=== PATIENT | female | born 1980 | race Caucasian/White ===

== ENCOUNTER 2016-10-06 09:29 | Emergency (ER) | payer BC ==
[2016-10-06 09:37] VITALS: BP 138/93
[2016-10-06 10:19] LABS: CHLORIDE,CL 105 mEq/L (98-106); SODIUM,NA 140 mEq/L (136-145)
--- NOTE | 2016-10-06 10:39 | EDM.PDOC ---
[id number] LIGHT HEADED Time Seen by Provider: 10/06/16 09:46 Source of Information: Reports: Patient History Limitations: Reports: No Limitations - History of Present Illness INITIAL COMMENTS - FREE TEXT/NARRATIVE: Patient presents to ED with a near syncopal episode while eating brunch out at the [facility]. Patient states she had sat down to eat and started feeling warm, lightheaded and felt she was going to faint. She noted her heart was racing and felt short of breath. Does admit that she got scared when this occurred. Patient relates she was up at 6 am today and had a bowl of fruit loops and a Coke prior to this. Had also eaten about half her hash browns when this happened. This has happened one other time and she worries she may be allergic to something as it felt hard to swallow for a bit. At present, feels much improved. Patient denies hives, wheezing or rash. Not aware of any previous allergies. Onset: Sudden Duration: Minutes:, Improving Location: Reports: Generalized Improves with: Reports: Rest Associated Symptoms: Reports: Nausea/Vomiting, Shortness of Breath, Syncope, Weakness. 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 Denies: Fever, Chills, Malaise, Decreased Appetite HEENT: Reports: Vertigo. Denies: Ear Discharge, Ear Pain, Sinus Problem, Throat Pain, Vision Change Respiratory: Reports: Shortness of Breath. Denies: Cough Cardiovascular: Reports: Lightheadedness, Palpitations. Denies: Chest Pain, Edema Endocrine: Reports: Fatigue GI/Abdominal: Reports: Nausea. Denies: Abdominal Pain, Constipation, Diarrhea, Vomiting : Reports: No Symptoms Musculoskeletal: Reports: No Symptoms Skin: Reports: No Symptoms Neurological: Reports: Dizziness, Syncope, Weakness Psychiatric: Reports: No Symptoms Hematologic/Lymphatic: Reports: No Symptoms ED EXAM, GENERAL - Physical Exam Exam: See Below Exam Limited By: No Limitations General Appearance: Alert, WD/WN, No Apparent Distress Eye Exam: Bilateral Eye: EOMI Ears: Normal External Exam, Normal TMs Nose: Normal Inspection, Normal Mucosa, No Blood Throat/Mouth: Normal Inspection, Normal Oropharynx Head: Normocephalic Neck: Normal Inspection, Supple, Non-Tender Respiratory/Chest: No Respiratory Distress, Lungs Clear, Normal Breath Sounds Cardiovascular: Normal Peripheral Pulses, Regular Rate, Rhythm GI/Abdominal: Normal Bowel Sounds, Soft, Non-Tender Extremities: Normal Inspection, Normal Range of Motion, Non-Tender Neurological: Alert, Oriented, CN II-XII Intact, No Motor/Sensory Deficits Psychiatric: Normal Affect, Normal Mood Skin Exam: Warm, Dry Course - Vital Signs Last Recorded V/S: Last Vital Signs Temp 96.1 F 10/06/16 09:36 Pulse 92 10/06/16 09:36 Resp 18 10/06/16 09:36 BP 138/93 H 10/06/16 09:36 Pulse Ox 100 10/06/16 09:36 - Orders/Labs/Meds Labs: Laboratory Tests 10/06/16 10/06/16 10/06/16 Range/Units 09:41 09:41 09:41 WBC 9.1 (5.0-10.0) 10^3/uL RBC 4.15 (4.00-5.50) 10^6/uL Hgb 12.9 (12.0-16.0) g/dL Hct 39.2 (37.0-47.0) % MCV 94.5 H (82.0-94.0) fL MCH 31.1 (27.0-32.0) pg MCHC 32.9 L (33.0-38.0) g/dL RDW Coeff of Christie 12.9 (11.0-15.0) % Plt Count 271 (150-400) 10^3/uL Neut % (Auto) 57.6 (35-85) % Lymph % (Auto) 30.4 (10-55) % [place] % (Auto) 9.3 (0-16) % Eos % (Auto) 2.3 (0-5) % Baso % (Auto) 0.4 (0-3) % Neut # (Auto) 5.22 (1.80-7.00) 10^3/uL Lymph # (Auto) 2.75 (1.00-4.80) 10^3/uL [place]kins # (Auto) 0.84 H (0.00-0.80) 10^3/uL Eos # (Auto) 0.21 (0.00-0.45) 10^3/uL Baso # (Auto) 0.04 10^3/uL D-Dimer, Quantitative 0.28 (0.00-0.50) Sodium 140 (136-145) mEq/L Potassium 3.9 (3.5-5.0) mEq/L Chloride 105 (98-106) mEq/L Carbon Dioxide 28 (21-32) mmol/L BUN 6 L (7-18) mg/dL Creatinine 0.5 L (0.6-1.0) mg/dL Est Cr Clr Drug Dosing 127.43 mL/min Estimated GFR (MDRD) > 60 (>=60) mL/min Glucose 65 L D (75-99) mg/dL Calcium 9.1 (8.4-10.1) mg/dL Lactate Dehydrogenase 138 (100-190) U/L Creatine Kinase 65 (21-215) U/L Troponin I < 0.017 (0.00-0.06) ng/mL C-Reactive Protein < 0.2 L (0.2-0.8) mg/dL TSH, Ultra Sensitive 0.67 (0.36-5.60) uIU/mL Urine Color (YELLOW) Urine Appearance (CLEAR) Urine pH (4.5-8.0) Ur Specific [place] (1.003-1.020) Urine Protein (NEGATIVE) mg/dL Urine Glucose (UA) (NEGATIVE) mg/dL Urine Ketones (NEGATIVE) mg/dL Urine Occult Blood (NEGATIVE) Urine Nitrite (NEGATIVE) Urine Bilirubin (NEGATIVE) Urine Urobilinogen (0.2-1.0) EU/dL Ur Leukocyte Esterase (NEGATIVE) Urine RBC (0-5) /HPF Urine WBC (0-5) /HPF Ur Squamous Epith Cells (NOT SEEN) /HPF Urine Bacteria (NOT SEEN) /HPF 10/06/16 Range/Units 09:41 WBC (5.0-10.0) 10^3/uL RBC (4.00-5.50) 10^6/uL Hgb (12.0-16.0) g/dL Hct (37.0-47.0) % MCV (82.0-94.0) fL MCH (27.0-32.0) pg MCHC (33.0-38.0) g/dL RDW Coeff of Christie (11.0-15.0) % Plt Count (150-400) 10^3/uL Neut % (Auto) (35-85) % Lymph % (Auto) (10-55) % [place] % (Auto) (0-16) % Eos % (Auto) (0-5) % Baso % (Auto) (0-3) % Neut # (Auto) (1.80-7.00) 10^3/uL Lymph # (Auto) (1.00-4.80) 10^3/uL [place] # (Auto) (0.00-0.80) 10^3/uL Eos # (Auto) (0.00-0.45) 10^3/uL Baso # (Auto) 10^3/uL D-Dimer, Quantitative (0.00-0.50) Sodium (136-145) mEq/L Potassium (3.5-5.0) mEq/L Chloride (98-106) mEq/L Carbon Dioxide (21-32) mmol/L BUN (7-18) mg/dL Creatinine (0.6-1.0) mg/dL Est Cr Clr Drug Dosing mL/min Estimated GFR (MDRD) (>=60) mL/min Glucose (75-99) mg/dL Calcium (8.4-10.1) mg/dL Lactate Dehydrogenase (100-190) U/L Creatine Kinase (21-215) U/L Troponin I (0.00-0.06) ng/mL C-Reactive Protein (0.2-0.8) mg/dL TSH, Ultra Sensitive (0.36-5.60) uIU/mL Urine Color Yellow (YELLOW) Urine Appearance Slightly cloudy (CLEAR) Urine pH 6.5 (4.5-8.0) Ur Specific [place] 1.015 (1.003-1.020) Urine Protein Negative (NEGATIVE) mg/dL Urine Glucose (UA) Negative (NEGATIVE) mg/dL Urine Ketones Negative (NEGATIVE) mg/dL Urine Occult Blood Negative (NEGATIVE) Urine Nitrite Negative (NEGATIVE) Urine Bilirubin Negative (NEGATIVE) Urine Urobilinogen 0.2 (0.2-1.0) EU/dL Ur Leukocyte Esterase Negative (NEGATIVE) Urine RBC Not seen (0-5) /HPF Urine WBC 0-5 (0-5) /HPF Ur Squamous Epith Cells Few H (NOT SEEN) /HPF Urine Bacteria Occasional H (NOT SEEN) /HPF Departure - Departure Time of Disposition: 10:33 Disposition: Home, Self-Care 01 Condition: Good Clinical Impression: Hypoglycemia - Discharge Information Referrals: Salvador Barnhart MD [Primary Care Provider] - Forms: ED Department Discharge Additional Instructions: 1. Rest 2. Push fluids 3. Small frequent meals with complex carbs and protein 4. Return for further work up if symptoms persist despite changing diet 5. consider obtaining a glucometer for checking blood sugars 6. Can visit with dietitician if needed 7. Call with any questions
== END 2016-10-06 10:40 | disposition home or self-care (01) ==
LOC: CC.ED 09:29 → SUPCPDRO 09:29 → CC.ED 10:40
DX: E16.2 Hypoglycemia, unspecified (principal); F17.210 Nicotine dependence, cigarettes, uncomplicated; Z79.899 Other long term (current) drug therapy; Z98.890 Other specified postprocedural states; Z90.710 Acquired absence of both cervix and uterus
CPT/HCPCS: 36415; 80048; 81001; 82550; 83615; 84443; 84484; 85025; 85379; 86140; 93005; 99284

== ENCOUNTER 2019-02-03 21:39 | Emergency (ER) | payer BC ==
[2019-02-03 21:45] VITALS: BP 123/86; PULSE 99
[2019-02-03] MEDS ORDERED: Ketorolac 30 MG/ML SDV IVPUSH ONE (21:59)
--- NOTE | 2019-02-03 22:08 | EDM.PDOC ---
ED HPI GENERAL MEDICAL PROBLEM - General Chief Complaint: Genitourinary Problem Stated Complaint: UTI symptoms Time Seen by Provider: 02/03/19 21:56 Source of Information: Reports: Patient, Family History Limitations: Reports: No Limitations - History of Present Illness INITIAL COMMENTS - FREE TEXT/NARRATIVE: in with c/o urinary burning a nd frequency x 2 days, pain more on the right side, no flank pain, no fever or chills, no NVDC, no other sx Onset: Gradual (2 days) Duration: Day(s): Location: Reports: Pelvis Quality: Reports: Burning Severity: Moderate Improves with: Reports: None Worsens with: Reports: Other (voiding) Associated Symptoms: Denies: Confusion, Fever/Chills, Nausea/Vomiting 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: Other (see below) (none) Right Lower Flank Pain Score (Numeric/FACES): 7 - Related Data Allergies Allergy/AdvReac Type Severity Reaction Status Date / Time No Known Allergies Allergy Verified 02/03/19 21:45 Home Meds: Home Meds Cyclobenzaprine [Flexeril] 5 mg PO BEDTIME PRN 10/06/16 [History] Phenazopyridine [Pyridium] 100 mg PO TID 2 Days #6 tablet 02/03/19 [Rx] cephALEXin [Keflex] 500 mg PO Q8H 10 Days #30 cap 02/03/19 [Rx] 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: Musculoskeletal History: Reports: Other (See Below) Other Musculoskeletal History: muscle spasms - Past Surgical History HEENT Surgical History: Reports: Tonsillectomy Female Surgical History: Reports: Endometrial Ablation, Hysterectomy Social & Family History - Family History Family Medical History: Noncontributory - Tobacco Use Smoking Status *Q: Current Every Day Smoker Years of Tobacco use: 20 Packs/Tins Daily: 0.5 - Caffeine Use Caffeine Use: Reports: Coffee, Soda - Recreational Drug Use Recreational Drug Use: No ED ROS GENERAL - Review of Systems Review Of Systems: See Below Constitutional: Reports: No Symptoms. Denies: Fever, Chills HEENT: Reports: No Symptoms Respiratory: Reports: No Symptoms Cardiovascular: Reports: No Symptoms GI/Abdominal: Reports: Abdominal Pain. Denies: Nausea, Vomiting : Reports: Frequency, Pain, Urgency. Denies: Discharge, Dysuria, Flank Pain, Urinary Retention Musculoskeletal: Reports: No Symptoms. Denies: Neck Pain, Back Pain Skin: Reports: No Symptoms. Denies: Rash, Erythema Neurological: Reports: No Symptoms ED EXAM, RENAL/ - Physical Exam Exam: See Below Exam Limited By: No Limitations General Appearance: Alert, WD/WN, No Apparent Distress Ears: Normal External Exam Nose: Normal Inspection Throat/Mouth: Normal Inspection, Normal Lips, Normal Voice, No Airway Compromise Head: Atraumatic, Normocephalic Neck: Normal Inspection, Supple, Non-Tender, Full Range of Motion Respiratory/Chest: No Respiratory Distress, Lungs Clear, Normal Breath Sounds, Chest Non-Tender Cardiovascular: Normal Peripheral Pulses, Regular Rate, Rhythm, No Murmur GI/Abdominal: Soft, Tender (suprapubic tenderness with palpation) Back Exam: Normal Inspection, Full Range of Motion. No: CVA Tenderness (L), CVA Tenderness (R) Extremities: Normal Inspection, Normal Range of Motion, Non-Tender, Normal Capillary Refill Neurological: Alert, Oriented, Normal Cognition, Normal Gait, No Motor/Sensory Deficits Psychiatric: Normal Affect, Normal Mood Skin Exam: Warm, Dry, Intact, Normal Color Course - Vital Signs Text/Narrative:: the pt was evaluated in the ED a UA was obtained and the pt was given Ketoralac 30mg IVP, pt did have a low grade temp and she took her own Tylenol from home. Last Recorded V/S: Last Vital Signs Temp 36.9 C 02/03/19 21:40 Pulse 99 02/03/19 21:40 Resp 18 02/03/19 21:40 BP 123/86 02/03/19 21:40 Pulse Ox 100 02/03/19 21:40 - Orders/Labs/Meds Orders: Active Orders 24 hr Category Date Time Status CULTURE URINE [RM] Stat Lab 02/03/19 22:01 Received UA W/MICROSCOPIC [URIN] Stat Lab 02/03/19 22:01 Results cefTRIAXone [Rocephin] Med 02/03/19 22:18 Once 2 gm IVPUSH ONETIME ONE Labs: Laboratory Tests 02/03/19 Range/Units 22:01 Urine Color Yellow (YELLOW) Urine Appearance Cloudy (CLEAR) Urine pH 6.0 (4.5-8.0) Ur Specific [place] 1.020 (1.003-1.020) Urine Protein >=300 H (NEGATIVE) mg/dL Urine Glucose (UA) Negative (NEGATIVE) mg/dL Urine Ketones Negative (NEGATIVE) mg/dL Urine Occult Blood Large H (NEGATIVE) Urine Nitrite Positive H (NEGATIVE) Urine Bilirubin Negative (NEGATIVE) Urine Urobilinogen 0.2 (0.2-1.0) EU/dL Ur Leukocyte Esterase Moderate H (NEGATIVE) Meds: Medications Discontinued Medications Generic Name Dose Route Start Last Admin Trade Name Freq PRN Reason Stop Dose Admin Acetaminophen 650 mg 02/03/19 22:12 Tylenol PO 02/03/19 22:13 NOW ONE Ketorolac Tromethamine 30 mg 02/03/19 21:59 02/03/19 22:07 Toradol IVPUSH 02/03/19 22:00 30 mg ONETIME ONE Administration Departure - Departure Time of Disposition: 22:19 Disposition: Home, Self-Care 01 Condition: Good Clinical Impression: UTI, Urinary tract infectious disease - Discharge Information *PRESCRIPTION DRUG MONITORING PROGRAM REVIEWED*: Not Applicable *COPY OF PRESCRIPTION DRUG MONITORING REPORT IN PATIENT TRE: Not Applicable Prescriptions: cephALEXin [Keflex] 500 mg PO Q8H 10 Days #30 cap Phenazopyridine [Pyridium] 100 mg PO TID 2 Days #6 tablet Instructions: Urinary Tract Infection, Adult Forms: ED Department Discharge Additional Instructions: increase fluids keflex 500mg 3 x a day for 10 days pyridium 100mg 3 x a day for 2 days follow up in the clinic for a repeat urine test in 7 to 10 days return to the ER sooner if worse or problems Sepsis Event Note - Evaluation Sepsis Screening Result: No Definite Risk - Focused Exam Vital Signs: Vital Signs Temp Pulse Resp BP Pulse Ox 02/03/19 21:40 36.9 C 99 18 123/86 100 Date Exam was Performed: 02/03/19 Time Exam was Performed: 22:19 - Problem List & Annotations (1) UTI, Urinary tract infectious disease SNOMED Code(s): 16890186 Code(s): N39.0 - URINARY TRACT INFECTION, SITE NOT SPECIFIED Status: Acute Priority: High - Problem List Review Problem List Initiated/Reviewed/Updated: Yes - My Orders Last 24 Hours: My Active Orders 02/03/19 22:01 CULTURE URINE [RM] Stat UA W/MICROSCOPIC [URIN] Stat 02/03/19 22:18 cefTRIAXone [Rocephin] 2 gm IVPUSH ONETIME ONE - Assessment/Plan Last 24 Hours: My Active Orders 02/03/19 22:01 CULTURE URINE [RM] Stat UA W/MICROSCOPIC [URIN] Stat 02/03/19 22:18 cefTRIAXone [Rocephin] 2 gm IVPUSH ONETIME ONE Plan: as above
[2019-02-03] MEDS ORDERED: Acetaminophen 325 MG Tab PO ONE (22:12)
[2019-02-03] MEDS ORDERED: cefTRIAXone 2 GM Vial IVPUSH ONE (22:18)
[2019-02-03] MEDS ORDERED: Phenazopyridine 95 MG Tab PO ONE (22:25)
[2019-02-04] MEDS ORDERED: Phenazopyridine 95 MG Tab PO ONE (22:24)
== END 2019-02-03 23:00 | disposition home or self-care (01) ==
LOC: CC.ED 21:39
DX: N39.0 Urinary tract infection, site not specified (principal); F17.210 Nicotine dependence, cigarettes, uncomplicated
CPT/HCPCS: 81001; 87086; 87088; 87186; 96374; 96375; 99284-25; A9270-GY; J0696; J1885